=== PATIENT | female | born 1945 | race Caucasian/White ===

== ENCOUNTER → 2016-12-12 | Outpatient (CLI) | payer MEDICARE ==
[~2016-12-12] MED LIST: ALLERGY SHOTS WEEKLY; AMLODIPINE BES2.5 MG PO; ASPIRIN81 M1 PO; ASPIRIN81 M2 PO; CLARINEX-D 11 BOTTLE PO; LIPITOR20 MG PO; LISINOPRIL20 MG PO; LOSARTAN POTASS50 MG PO; SYNTHROID0.1 MG PO; TOPROL XL50 MG PO
--- NOTE | ~2016-12-12 | CT57 ---
[facility] A Service of [facility] & [facility] RADIOLOGY TEXT RESULTS PATIENT: CESIA DIETRICH [facility] : [birth year] UNIT #: [id number] AGE: [address]: Cathy Hickman MD SEX: F ORDER DR: [id number] [facility]. [place], [place] [address] [id number] O MR#: [id number] Acc #: [id number] NAME: CESIA DIETRICH. : 1945 SEX: F STUDY DATE/TIME: 12/12/2016 9:19 [facility] ROOM: STUDY DESCRIPTION: CT Chest Wo Cont Attending Physician: Cathy Hickman M.D., Ph.D. Referring Physician: Cathy Hickman M.D., Ph.D. Ordering Physician: Cathy Hickman M.D., Ph.D. Primary Care Physician: Ash Hirsch M.D. MEDICAL IMAGING REPORT This report is preliminary unless electronic signature is present EXAM CT chest INDICATIONS Lung cancer follow up. Restaging. Status post CyberKnife therapy. TECHNIQUE CT of the thorax without contrast. Coronal and sagittal reconstructions were obtained. This CT exam was performed with one or more of the following radiation dose reduction techniques: Automatic exposure control, adjustment of mA and/or kV according to patient size, and iterative reconstruction. COMPARISON CT thorax dated 09/13/2015. FINDINGS There is a dense rounded area of consolidation in the right upper lobe with associated volume loss. Overall, this area has not significantly changed from the prior study and measures approximately 4.5 x 4.1 x 1.6 cm compared to 4.5 x 4.2 x 1.8 cm previously. There is an area of interstitial thickening along the anterior aspect of the right upper lobe (image 24) that is unchanged. No new pulmonary nodules are identified. Central airways are patent. No pathologically enlarged mediastinal or hilar lymph nodes. The thoracic aorta is normal in caliber. No pericardial or pleural effusion. There is no acute osseous abnormalities. IMPRESSION 1. No evidence of disease progression. Right upper lobe pulmonary nodule/area of consolidation has not significantly changed in a [facility] A Service of [facility] & [facility] RADIOLOGY TEXT RESULTS PATIENT: CESIA DIETRICH LOCATION: [facility] : [birth year] UNIT #: [id number] AGE: [address]: Cathy Hikcman MD SEX: F ORDER DR: patient status post CyberKnife therapy for a pulmonary malignancy. Dictated by... Ajit Solano M.D. THIS IS AN ELECTRONICALLY VERIFIED REPORT Ajit Solano M.D. at 12/13/2016 9:02 AM Lynette/bibiana TD: 12/12/2016 21:37 JOB #: [id number] MEDICAL IMAGING REPORT Page 1 of 1 COPY
[2016-12-12 09:40] LABS: POC - CREATININE 1.45 mg/dL (0.44-1.03)
== END | disposition home or self-care (01) ==
LOC: CCAT 08:28
PROVIDERS: Internal Medicine Hematology & Oncology
DX: C34.10 Malignant neoplasm of upper lobe, unspecified bronchus or lung (principal); R91.1 Solitary pulmonary nodule; Z98.890 Other specified postprocedural states
CPT/HCPCS: 71250; 82565

== ENCOUNTER → 2017-01-23 | Outpatient (CLI) | payer MEDICARE ==
--- NOTE | ~2017-01-23 | US37 ---
[facility] A Service of [facility] RADIOLOGY TEXT RESULTS PATIENT: CESIA DIETRICH LOCATION: [facility] : 49 UNIT #: [id number] AGE: [address]: Ash Hirsch MD SEX: F ORDER DR: [id number] O MR#: [id number] Acc #: [id number] NAME: CESIA DIETRICH. : 1945 SEX: F STUDY DATE/TIME: 01/23/2017 9:58 UNIT: [facility] ROOM: STUDY DESCRIPTION: US Carotid W/Doppler Bilateral Attending Physician: Ash Hirsch M.D. Referring Physician: Ash Hirsch M.D. Ordering Physician: Ash Hirsch M.D. Primary Care Physician: Ash Hirsch M.D. MEDICAL IMAGING REPORT This report is preliminary unless electronic signature is present. EXAM Carotid Doppler, 01/23/2017. PROCEDURE Hastings-scale imaging, color Doppler flow imaging, and Doppler waveform analysis. HISTORY Carotid bruit detected at recent physical examination. FINDINGS There is extensive hastings-scale evidence of plaque in both carotid systems. There is antegrade flow in both common and internal and external carotid and vertebral arteries. Right internal carotid peak systolic velocity is 109 cm/sec, with a brisk upstroke and fairly marked spectral broadening. Left internal carotid peak systolic velocity is 80 cm/sec with a brisk systolic upstroke and moderate to marked spectral broadening. IMPRESSION 1. Extensive atherosclerotic plaque in both carotid systems, but velocities and waveforms indicate less than 50% stenosis in both internal carotids by NASCET criteria. 2. Antegrade flow also demonstrated in both vertebral arteries and both external carotid arteries. Dictated by... Anjel Caputo M.D. [facility] A Service [facility] RADIOLOGY TEXT RESULTS PATIENT: CESIA DIETRICH LOCATION: [facility] : 49 UNIT #: [id number] AGE: [address]: Ash Hirsch MD SEX: F ORDER DR: THIS IS AN ELECTRONICALLY VERIFIED REPORT Anjel Caputo M.D. at 01/25/2017 1:51 PM ANUPAM/jozef TD: 01/23/2017 18:52 JOB #: [id number] MEDICAL IMAGING REPORT Page 1 of 1
== END | disposition home or self-care (01) ==
LOC: SNIV 09:54
DX: R09.89 Other specified symptoms and signs involving the circulatory and respiratory systems (principal); I65.23 Occlusion and stenosis of bilateral carotid arteries
CPT/HCPCS: 93880

== ENCOUNTER → 2017-04-10 | Outpatient (CLI) | payer MEDICARE ==
--- NOTE | ~2017-04-10 | MY11 ---
[facility] A Service of [facility] RADIOLOGY TEXT RESULTS PATIENT: CESIA DIETRICH LOCATION: [facility] : 49 UNIT #: [id number] AGE: [address]: Ash Hirsch MD SEX: F ORDER DR: [id number] [address] [address] [id number] O MR#: [id number] Acc #: [id number] NAME: CESIA DIETRICH : 1945 SEX: F STUDY DATE/TIME: 04/10/2017 12:06 UNIT: [facility] ROOM: STUDY DESCRIPTION: MY Mammogram Screening Dig [place] Attending Physician: Ash Hirsch M.D. Referring Physician: Ash Hirsch M.D. Ordering Physician: Ash Hirsch M.D. Primary Care Physician: Ash Hirsch M.D. MEDICAL IMAGING REPORT This report is preliminary unless electronic signature is present. EXAM Digital screening mammogram, 04/10/2017 HISTORY 72-year-old woman no risk elevation. Annual screening. COMPARISON Mammograms date to 08/02/2006 with most recent 03/28/2016. FINDINGS Digital imaging of each breast was completed utilizing screening protocol. Review includes FDA-approved CAD device. Breast parenchyma remains heterogeneous with fibroglandular opacities again noted in each breast. Mild dominance superior middle third left breast is again noted and unchanged. I see no breast mass. There are no interval occurring microcalcifications and no suspicious architectural deformity. IMPRESSION Stable benign mammogram. Annual screening recommended. Patients over the age of 40 are entered into a reminder system with target due date for the next mammogram. A result letter will also be sent to the patient. BIRADS: 2 Benign Finding Dictated by... Karl Gallo M.D. THIS IS AN ELECTRONICALLY VERIFIED REPORT Karl Gallo M.D. at 04/11/2017 8:02 AM [facility] A Service [facility] RADIOLOGY TEXT RESULTS PATIENT: CESIA DIETRICH LOCATION: [facility] : 49 UNIT #: [id number] AGE: [address]: Ash Hirsch MD SEX: F ORDER DR: MAXIMILIANO/kari TD: 04/10/2017 16:52 JOB #: [id number] MEDICAL IMAGING REPORT Page 1 of 1
== END | disposition home or self-care (01) ==
LOC: SMAM 11:15
DX: Z12.31 Encounter for screening mammogram for malignant neoplasm of breast (principal)
CPT/HCPCS: G0202